=== PATIENT | female | born 1960 | race Caucasian/White ===

== ENCOUNTER 2018-02-09 07:42 | Emergency (ER) | payer MEDICAID ==
[~2018-02-09] VITALS: Ht 162.6 cm; Wt 71.0 kg
[~2018-02-09 07:42] MED LIST: CLIN-79 PO; HYDR-3965 PO
[2018-02-09 07:43] VITALS: BP 139/74
[2018-02-09] MEDS ORDERED: HYDR-565 PO (08:16)
[2018-02-09] MEDS ORDERED: VALA100027 PO (08:16)
== END 2018-02-09 08:25 | disposition home or self-care (01) ==
LOC: ER 07:42
DX: B02.9 Zoster without complications (principal); F17.200 Nicotine dependence, unspecified, uncomplicated; I10 Essential (primary) hypertension; Z88.5 Allergy status to narcotic agent; Z88.8 Allergy status to other drugs, medicaments and biological substances
CPT/HCPCS: 99283

== ENCOUNTER 2018-02-25 10:29 | Emergency (ER) | payer MEDICAID ==
[~2018-02-25] VITALS: Ht 565.3 cm; Wt 70.0 kg
[~2018-02-25 10:29] MED LIST changes: +HYDR-565 PO; +VALA100027 PO
[2018-02-25] MEDS ORDERED: dexamethasone sod phosphate 10mg/ml inj IM STA (10:57)
[2018-02-25] MEDS ORDERED: PRED50TA PO (11:02)
[2018-02-25] MEDS ORDERED: VALA100027 PO (11:02)
[2018-02-25] MEDS ORDERED: mupirocin 2% ointment 22GM TP STA (11:05)
[2018-02-25 11:17] VITALS: BP 149/96
== END 2018-02-25 11:18 | disposition home or self-care (01) ==
LOC: ER 10:29
DX: B02.9 Zoster without complications (principal); I10 Essential (primary) hypertension; Z88.5 Allergy status to narcotic agent; Z79.899 Other long term (current) drug therapy
CPT/HCPCS: 96372; 99283; J1100